=== PATIENT | male | born 1955 | race Caucasian/White ===

== ENCOUNTER → 2019-08-25 11:46 | Outpatient (BNVA) | payer MEDICARE, SELFPAY | PROVIDERS: PCP Nurse Practitioner Family; Visit Provider Nurse Practitioner Family | DX: E78.5 Hyperlipidemia, unspecified (principal); E11.9 Type 2 diabetes mellitus without complications; M25.541 Pain in joints of right hand; M25.542 Pain in joints of left hand; M25.561 Pain in right knee; G89.29 Other chronic pain; G56.03 Carpal tunnel syndrome, bilateral upper limbs; M65.332 Trigger finger, left middle finger | CPT/HCPCS: 80053; 80061; 83036; 85025; 85651; 86038; 86140; 86431 ==

== ENCOUNTER 2020-10-12 06:00 | Outpatient (RCR) | payer MEDICARE, SELFPAY | END 2020-11-11 23:59 | disposition home or self-care (01) | LOC: SOT 06:00 | PROVIDERS: PCP Nurse Practitioner Family; Referring Provider Family Medicine; Visit Provider Family Medicine | DX: M65.332 Trigger finger, left middle finger (principal); M65.342 Trigger finger, left ring finger | CPT/HCPCS: 97110; 97140; 97166 ==